=== PATIENT | male | born 1965 | race Caucasian/White ===

== ENCOUNTER 2023-07-29 15:53 | Emergency (ER) | payer BC ==
[2023-07-29] MEDS ORDERED: Potassium Chloride 20 MEQ Tab.ER PO ONE (16:33)
== END 2023-07-29 17:56 | disposition home or self-care (01) ==
LOC: JD.ED 15:53
DX: E87.6 Hypokalemia (principal); Z88.0 Allergy status to penicillin; Z88.8 Allergy status to other drugs, medicaments and biological substances
CPT/HCPCS: 93005; 99284; A9270; 93010; 99283